=== PATIENT | male | born 1930 | race Asian ===

== ENCOUNTER → 2017-01-31 | Outpatient (CLI) | payer OTHER ==
[~2017-01-31] MED LIST: OLME20TA14 PO; SIMV20TA6 PO
[2017-01-31 13:20] LABS: RED BLOOD CELL COUNT(AUTO) 2.39 MIL/uL (4.50-5.90); WHITE BLOOD COUNT (AUTO) 9.3 K/uL (4.5-11.0)
[2017-01-31 13:21] LABS: HEMATOCRIT 20.5 % (41-53); MEAN CORPUSCULAR HEMOGLOBIN 28.5 pg (26.0-34.0); MEAN CORPUSCULAR HGB CONC 32.5 G/dL (31.0-37.0); MEAN CORPUSCULAR VOLUME 88 fL (80-100); PLATELET COUNT (AUTO) 14 K/uL (150-450)
[2017-01-31 13:22] LABS: BASOPHILS % (AUTO) 0.1 % (0.0-2.0); EOSINOPHILS % (AUTO) 0.2 % (1.0-6.0); LYMPHOCYTES # (AUTO) 2.4 K/uL (1.0-4.8); LYMPHOCYTES % (AUTO) 25.6 % (22.0-44.0); MONOCYTES % (AUTO) 0.2 % (2.0-9.0); NEUTROPHILS # (AUTO) 6.8 K/uL (1.8-7.7); NEUTROPHILS % (AUTO) 73.9 % (40.0-70.0)
== END | disposition home or self-care (01) ==
LOC: LABMN 13:06
PROVIDERS: ATTEND Internal Medicine Hematology & Oncology
DX: N40.0 Benign prostatic hyperplasia without lower urinary tract symptoms (principal); D64.9 Anemia, unspecified

== ENCOUNTER → 2017-03-28 | Outpatient (CLI) | payer MEDICARE, MEDICAID | END | disposition home or self-care (01) | LOC: RADPV 15:06 | PROVIDERS: ATTEND Internal Medicine | DX: M17.11 Unilateral primary osteoarthritis, right knee (principal) ==